=== PATIENT | male | born 1970 | race Caucasian/White ===

== ENCOUNTER 2022-04-03 17:54 | Emergency (ER) | payer OTHER ==
[~2022-04-03] VITALS: Ht 177.8 cm; Wt 95.0 kg
[2022-04-03 18:22] LABS: BASO% 0.6 % (0-3); EOS% 1.4 % (0-8); HEMOGLOBIN 18.2 g/dl (14.0-18.0); IMMATURE GRANULOCYTES 0.4 % (0.0-5.0); LYMPH% 27.3 % (15-41); MEAN CELL VOLUME 91.9 fL CALC (80.0-100.0); MEAN CORPUSCULAR HGB 31.5 pG CALC (26.0-32.0); MEAN CORPUSCULAR HGB CONC 34.3 g/dL CAL (32.0-36.0); NEUT# 6.11 thou/uL (1.82-7.42); NEUT% 63.3 % (42-76); RED BLOOD COUNT 5.77 mill/uL (4.70-6.10); RED CELL DISTRI WIDTH 14.4 % (11.5-15.5)
[2022-04-03 18:32] LABS: ALBUMIN 4.6 g/dL (3.2-5.0); ALKALINE PHOSPHATASE 80 u/l (38-126); ANION GAP 17 (6-22 (CALC)); BILIRUBIN, TOTAL 0.4 mg/dL (0.0-1.4); BUN 13 mg/dL (9-20); BUN/CREATININE RATIO 14 (12-20 (CALC)); CARBON DIOXIDE 24 mmol/l (22-30); CHLORIDE 103 mmol/l (95-108); GFR FOR AFR.AMER. > 60 ML/MIN (>=60 (CALC)); GFR OTHER RACES > 60 ML/MIN (>=60 (CALC)); POTASSIUM 3.8 mmol/l (3.5-5.1); SGOT/AST 45 u/l (17-59); SODIUM 141 mmol/l (137-146); TOTAL PROTEIN 8.1 g/dL (6.3-8.2)
[2022-04-03 18:45] VITALS: BP 147/87
== END 2022-04-03 19:20 | DRG 935 ==
LOC: ED 17:54
PROVIDERS: Family Medicine
DX: T20.26XA Burn of second degree of forehead and cheek, initial encounter (principal); T22.111A Burn of first degree of right forearm, initial encounter; T23.101A Burn of first degree of right hand, unspecified site, initial encounter